=== PATIENT | male | born 1955 | race Caucasian/White ===

== ENCOUNTER 2025-01-09 10:39 | Inpatient (IN) | payer BC ==
[2025-01-09] VITALS (29 sets, daily range): BP systolic 82–137; BP diastolic 35–107; TEMP 98–99.1; O2SAT 97–100
[~2025-01-09] VITALS: Ht 167.6 cm; Wt 58.5 kg
[2025-01-09 11:12] LABS: PLATELET COUNT (AUTO) 312 K/uL (150-450); RED CELL DISTRIBUTION WIDTH 16.4 % (11.5-15.0); WHITE BLOOD COUNT (AUTO) 9.6 K/uL (4.3-11.0)
[2025-01-09] MEDS: IV NS 0.9% 1,000 ML BAG IV ONE (11:20)
[2025-01-09 11:29] LABS: CALCIUM, SERUM 7.9 mg/dL (8.5-10.1); CREATININE 1.5 mg/dL (0.6-1.3); SODIUM SERUM 129 mmol/L (136-145); UREA NITROGEN, BLOOD 45 mg/dL (7-18)
[2025-01-09 11:33] LABS: RED BLOOD CELL COUNT(AUTO) 1.65 MIL/uL (4.5-6.0)
[2025-01-09 11:35] LABS: SERUM AMMONIA 15 umol/L (11-32)
[2025-01-09 11:36] LABS: ASPARTATE AMINOTRANSFERASE 35 U/L (15-37); TOTAL PROTEIN, SERUM 5.1 g/dL (6.4-8.2)
[2025-01-09 11:37] LABS: ALCOHOL, BLOOD < 3 mg/dL (0-10)
[2025-01-09] MEDS ORDERED: ONDANSETRON HCL/PF 4 MG/2 ML VIAL IVP PRN (12:00)
[2025-01-09] MEDS ORDERED: MAGNESIUM HYDROXIDE 30 ML UDC PO PRN (12:00)
[2025-01-09] MEDS ORDERED: MAG HYDROX/AL HYDROX/SIMETH 30 ML UDC PO PRN (12:00)
[2025-01-09] MEDS ORDERED: Z GUARD REMEDY 4 OZ OINT TP PRN (12:00)
[2025-01-09] MEDS ORDERED: ACETAMINOPHEN 325 MG TABLET PO PRN (12:00)
[2025-01-09] MEDS ORDERED: OXYC5TAB3 PO (12:24)
[2025-01-09] MEDS ORDERED: OMEP40CA21 PO (12:24)
[2025-01-09] MEDS ORDERED: MIRT7.5T10 PO (12:24)
[2025-01-09 12:33] LABS: BASOPHILS % (MANUAL) 0 % (0.0-2.0); EOSINOPHILS % (MANUAL) 0 % (0-4); LYMPHOCYTES % (MANUAL) 5 % (16-48); MONOCYTES % (MANUAL) 14 % (0-11.0); NEUTROPHILS % (MANUAL) 81 (42-76); PLATELET ESTIMATE ADEQUATE
[2025-01-09] MEDS ORDERED: IOHEXOL-350 100 ML VIAL IV ONE (12:36)
[2025-01-09] MEDS ORDERED: IV NS 0.9% 250 ML IV ONE (12:36)
[2025-01-09 12:52] LABS: INR 1.02 (0.91-1.10)
[2025-01-09] MEDS: IV NS 0.9% 1,000 ML IV PRN (18:52)
[2025-01-09 19:47] LABS: OCCULT BLOOD STOOL POSITIVE (NEGATIVE)
[2025-01-09] MEDS: PANTOPRAZOLE 40 MG VIAL IV SCH (21:42)
[2025-01-10] VITALS (42 sets, daily range): BP systolic 82–138; BP diastolic 34–82; TEMP 97.5–99.3; O2SAT 97–100
[2025-01-10 04:50] LABS: PLATELET COUNT (AUTO) 213 K/uL (150-450); RED BLOOD CELL COUNT(AUTO) 2.20 MIL/uL (4.5-6.0); RED CELL DISTRIBUTION WIDTH 15.7 % (11.5-15.0); WHITE BLOOD COUNT (AUTO) 13.0 K/uL (4.3-11.0)
[2025-01-10 04:53] LABS: CALCIUM, SERUM 7.3 mg/dL (8.5-10.1); CREATININE 1.1 mg/dL (0.6-1.3); PHOSPHORUS 3.9 mg/dL (2.5-4.9); SODIUM SERUM 136.0 mmol/L (136-145); UREA NITROGEN, BLOOD 39.0 mg/dL (7-18)
[2025-01-10 05:41] LABS: NEUTROPHILS % (MANUAL) 68 (42-76)
[2025-01-10 05:42] LABS: LYMPHOCYTES % (MANUAL) 7 % (16-48); MONOCYTES % (MANUAL) 25 % (0-11.0); NUCLEATED RED BLOOD CELLS 2.0 /100WBC (0.0-0.0); PLATELET ESTIMATE ADEQUATE
[2025-01-10] MEDS ORDERED: ANESTHESIA TRAY IN PYXIS 1 EA TRAY MC ONE (12:36)
[2025-01-10] MEDS ORDERED: DOSING PER PHARMACY-ZOSYN IV 1 EA EA XX PRN (13:00)
[2025-01-10] MEDS: ZOSYN IVPB 3.375 G in IV D5W 50ml IV SCH (14:28)
[2025-01-10] MEDS: MORPHINE SULFATE INJ 2 MG/ML DISP.SYRIN IV PRN (18:58)
[2025-01-10] MEDS ORDERED: PANTOPRAZOLE 80 MG in IV NS 0.9% 500 ML IV PRN (19:00)
[2025-01-10] MEDS ORDERED: OCTREOTIDE 50 MCG in IV NS 0.9% 50 ML IV ONE (19:00)
[2025-01-10] MEDS ORDERED: OCTREOTIDE 1,250 MCG in IV NS 0.9% 247.5 ML IV SCH (20:00)
[2025-01-10] MEDS: OCTREOTIDE 50 MCG in IV NS 0.9% 50 ML IV ONE (20:18)
[2025-01-10] MEDS: OCTREOTIDE 500 MCG in IV NS 0.9% 99 ML IV SCH (21:11)
[2025-01-10] MEDS: PANTOPRAZOLE 80 MG in IV NS 0.9% 100 ML IV ONE (21:14)
[2025-01-10] MEDS: HYDROMORPHONE 1 MG/1 ML DISP.SYRIN IV PRN (21:46)
[2025-01-10] MEDS: PANTOPRAZOLE 80 MG in IV NS 0.9% 500 ML IV SCH (23:48)
[2025-01-11] VITALS (22 sets, daily range): BP systolic 103–132; BP diastolic 59–86; TEMP 97.5–98.8; O2SAT 95–100
[2025-01-11] MEDS: HYDROMORPHONE 1 MG/1 ML DISP.SYRIN IV PRN (12:45)
[2025-01-11] MEDS: LORAZEPAM INJ 2 MG/ML VIAL IV PRN (14:06)
[2025-01-12 07:59] LABS: PLATELET COUNT (AUTO) 180 K/uL (150-450); RED BLOOD CELL COUNT(AUTO) 2.67 MIL/uL (4.5-6.0); RED CELL DISTRIBUTION WIDTH 17.9 % (11.5-15.0); WHITE BLOOD COUNT (AUTO) 11.7 K/uL (4.3-11.0)
[2025-01-12 08:00] VITALS: BP 119/73; TEMP 97.7; O2SAT 99
[2025-01-12 08:30] VITALS: BP 119/73; TEMP 97.7; O2SAT 99
[2025-01-12 08:31] LABS: ASPARTATE AMINOTRANSFERASE 28.0 U/L (15-37); CALCIUM, SERUM 7.4 mg/dL (8.5-10.1); CREATININE 0.9 mg/dL (0.6-1.3); PHOSPHORUS 3.6 mg/dL (2.5-4.9); SODIUM SERUM 142.0 mmol/L (136-145); TOTAL PROTEIN, SERUM 4.5 g/dL (6.4-8.2); UREA NITROGEN, BLOOD 28.0 mg/dL (7-18)
[2025-01-12 11:31] LABS: BASOPHILS % (MANUAL) 0 % (0.0-2.0); EOSINOPHILS % (MANUAL) 1 % (0-4); LYMPHOCYTES % (MANUAL) 8 % (16-48); MONOCYTES % (MANUAL) 19 % (0-11.0); NEUTROPHILS % (MANUAL) 72 (42-76); PLATELET ESTIMATE ADEQUATE
[2025-01-12 16:00] VITALS: BP_SYST 144; BP_SYST 99; BP_DIAS 75; BP_DIAS 80; TEMP 97.3; TEMP 98.4; O2SAT 100; O2SAT 95
[2025-01-12 20:00] VITALS: BP 114/76; TEMP 98.2; O2SAT 100
[2025-01-12 22:24] VITALS: BP 114/76; TEMP 98.2; O2SAT 100
[2025-01-13 07:30] VITALS: BP 99/77; TEMP 97.7; O2SAT 94
[2025-01-13 08:00] VITALS: BP 99/77; TEMP 97.7; O2SAT 94
== END 2025-01-13 18:55 | disposition hospice, home (50) | DRG 368 ==
LOC: ER 10:55 → ICU 14:08 → MED 01-11 18:16
PROVIDERS: ADMIT Nurse Practitioner Acute Care
PROC: 30233N1 Transfusion of Nonautologous Red Blood Cells into Peripheral Vein, Percutaneous Approach (ICD-10-PCS; principal; 2025-01-09)
PROC: 06L38CZ Occlusion of Esophageal Vein with Extraluminal Device, Via Natural or Artificial Opening Endoscopic (ICD-10-PCS; 2025-01-10)
DX: I85.01 Esophageal varices with bleeding (principal); E43 Unspecified severe protein-calorie malnutrition; N17.0 Acute kidney failure with tubular necrosis; C25.9 Malignant neoplasm of pancreas, unspecified; R64 Cachexia; Z51.5 Encounter for palliative care; E83.51 Hypocalcemia; E88.09 Other disorders of plasma-protein metabolism, not elsewhere classified; E86.0 Dehydration; D50.0 Iron deficiency anemia secondary to blood loss (chronic); K26.4 Chronic or unspecified duodenal ulcer with hemorrhage; I10 Essential (primary) hypertension; E87.1 Hypo-osmolality and hyponatremia; E86.1 Hypovolemia; R53.1 Weakness; E78.5 Hyperlipidemia, unspecified; Z68.20 Body mass index [BMI] 20.0-20.9, adult; K29.70 Gastritis, unspecified, without bleeding; Z96.89 Presence of other specified functional implants
CPT/HCPCS: 36415; 71045-TC; 80048-TC; 80053-TC; 80076-TC; 82140-TC; 82272-TC; 82962-TC; 83735-TC; 84100-TC; 84439-TC; 84443-TC; 84484-TC; 85027-TC; 85730-TC; 86850-TC; 87081-TC; A4223; G0378; G0480; J1171; J2060; J2270; J2354; J2470; J2543; J2704; J3490; J7030; J7040; J7050; J7060; P9016; Q9967